=== PATIENT | female | born 1985 | race Hispanic/Latino ===

== ENCOUNTER 2022-12-24 06:06 | Emergency (ER) | payer OTHER ==
[2022-12-24 06:57] LABS: ALT (SGPT) 102 U/L (8-55); AST (SGOT) 52 U/L (5-34); Albumin 4.4 g/dL (3.5-5.0); Alkaline Phosphatase 118 U/L (40-110); Anion Gap 18 mmol/L (10-20); BUN (Urea Nitrogen) 5 mg/dL (7.0-18.7); Bilirubin, Total 1.3 mg/dL (0.2-1.2); Calc. Creatinine Clearance 0 mL/min (70-130); Calcium 9.2 mg/dL (7.8-10.44); Carbon Dioxide 19 mmol/L (22-29); Chloride 101 mmol/L (98-107); Estimated GFR 116; Globulin 3.6 g/dL (2.4-3.5); Glucose 113 mg/dL (70-105); Lipase 12 U/L (8-78); Potassium 3.7 mmol/L (3.5-5.1); Sodium 134 mmol/L (136-145)
[2022-12-24 06:59] LABS: #Eosinphils 0.1 10x3/uL (0.0-0.5); #Monocytes 0.8 10x3/uL (0.0-1.1); #Neutrophils 8.8 10x3/uL (1.5-8.4); %Basophils 0.2 % (0.0-2.0); %Eosinophils 0.7 % (0.0-6.0); %Lymphocytes 9.7 % (18.0-47.0); %Monocytes 7.2 % (0.0-10.0); %Neutrophils 81.7 % (40.0-75.0); Hemoglobin 12.9 g/dL (12.0-15.5); Mean Corpuscular HGB CONC 35.1 g/dL (32.0-36.0); Mean Corpuscular Hemoglobin 30.4 pg (27.0-33.0); Mean Corpuscular Volume 86.6 fl (81.6-98.3); Mean Platelet Volume 10.9 fl (7.4-10.4); Platelet Count 241 10x3/uL (150-450); RBC Distribution Width 12.4 % (11.5-14.5); Red Blood Cell (RBC) Count 4.24 10x6/uL (3.90-5.03); White Blood Cell (WBC) Count 10.7 10x3/uL (3.5-10.5)
[2022-12-24] MEDS ORDERED: Ketorolac Tromethamine 30 MG/ML VIAL ONE (07:01)
[2022-12-24] MEDS ORDERED: Ondansetron PF 4 MG/2 ML Vial ONE ×2 (07:26→11:53)
[2022-12-24] MEDS ORDERED: Morphine 2 MG/ML VIAL ONE (07:26)
[2022-12-24] MEDS ORDERED: Morphine 4 MG/ML VIAL ONE (08:28)
[2022-12-24] MEDS ORDERED: Piperacillin/Tazobactam 3.375 GM in Sodium Chloride 0.9% 100 ML IVPB SCH (11:30)
[2022-12-24 11:45] LABS: BHCG - Serum Negative (NEGATIVE); Pregs Control Background? CLEAR/WHITE (CLR/WHITE); Pregs Control Bar Appear? YES (CONTROL BAR)
[2022-12-24] MEDS ORDERED: PROPOFOL 20 ML ONE (11:53)
[2022-12-24] MEDS ORDERED: Lidocaine 2% PF 5 ML VIAL ONE (11:53)
[2022-12-24] MEDS ORDERED: Rocuronium Bromide 10 MG/ML (10ML VIAL) ONE (11:53)
[2022-12-24] MEDS ORDERED: Fentanyl 250 MCG/5 ML VIAL ONE (11:53)
[2022-12-24] MEDS ORDERED: Dexamethasone 4 mg/ml Vial ONE (11:53)
[2022-12-24] MEDS ORDERED: EPINEPHrine 1 MG/ML AMP ONE (11:56)
[2022-12-24] MEDS ORDERED: Bupivacaine PF 0.5% 30 ML VIAL ONE (11:56)
[2022-12-24] MEDS ORDERED: Promethazine HCl 25 MG/ML VIAL ONE (12:01)
[2022-12-24] MEDS ORDERED: Esmolol 100 MG/10 ML VIAL ONE (12:24)
[2022-12-24] MEDS ORDERED: Metoprolol Tartrate 5 MG/5 ML VIAL ONE (12:41)
[2022-12-24] MEDS ORDERED: Glycopyrrolate 0.2 MG/ML 5 ML SYRINGE ONE (13:09)
[2022-12-24] MEDS ORDERED: HYDROcodone/Acetaminophen 5/325 mg Tablet PO PRN ×2 (13:26)
[2022-12-24] MEDS ORDERED: oxyCODONE 5 MG TAB ONE (14:35)
== END 2022-12-24 15:10 | disposition home or self-care (01) ==
LOC: CSHERS 06:06
DX: K80.20 Calculus of gallbladder without cholecystitis without obstruction (principal); D72.829 Elevated white blood cell count, unspecified
CPT/HCPCS: 76705; 80053; 83690; 84703; 85025; 96374; 96375; 96376; C1889; J0171; J1100; J1885; J2001; J2270; J2272; J2405; J2543; J2550; J2704; J3010; J3490; S0020